=== PATIENT | female | born 1955 | race Caucasian/White ===

== ENCOUNTER → 2019-08-20 09:00 | Outpatient (BNVA) | payer MEDICARE, SELFPAY | PROVIDERS: Visit Provider Nurse Practitioner Family | DX: I10 Essential (primary) hypertension (principal); R53.83 Other fatigue; Z79.899 Other long term (current) drug therapy; E78.2 Mixed hyperlipidemia; D64.9 Anemia, unspecified; R25.2 Cramp and spasm; E55.9 Vitamin D deficiency, unspecified | CPT/HCPCS: 80053; 80061; 81001; 82306; 83036; 83550; 83735; 84443; 85025 ==

== ENCOUNTER → 2020-05-18 13:59 | Outpatient (BNVA) | payer MEDICARE, SELFPAY | PROVIDERS: Visit Provider Nurse Practitioner Family | DX: I10 Essential (primary) hypertension (principal); R73.09 Other abnormal glucose; E78.5 Hyperlipidemia, unspecified | CPT/HCPCS: 80053; 80061; 81003; 83036; 85025 ==

== ENCOUNTER 2020-06-28 10:52 | Outpatient (CLI) | payer MEDICARE, SELFPAY | END 2020-06-28 10:53 | disposition home or self-care (01) | LOC: LAB 04-25 11:14 | PROVIDERS: PCP Nurse Practitioner Family; Visit Provider Nurse Practitioner Family | DX: I10 Essential (primary) hypertension (principal) | CPT/HCPCS: 80053; 82306; 83735; 84439; 84443; 84481 ==

== ENCOUNTER → 2021-10-18 09:16 | Outpatient (BNVA) | payer MEDICARE, SELFPAY | PROVIDERS: PCP Nurse Practitioner Family; Visit Provider Nurse Practitioner | DX: E78.5 Hyperlipidemia, unspecified (principal); R73.09 Other abnormal glucose; I10 Essential (primary) hypertension | CPT/HCPCS: 80053; 80061; 83036; 84443; 85025 ==

== ENCOUNTER → 2021-12-21 09:47 | Outpatient (BNVA) | payer MEDICARE, SELFPAY | PROVIDERS: PCP Nurse Practitioner; Visit Provider Nurse Practitioner | DX: N39.0 Urinary tract infection, site not specified (principal) | CPT/HCPCS: 81000 ==

== ENCOUNTER → 2022-08-08 10:45 | Outpatient (BNVA) | payer MEDICARE, SELFPAY | PROVIDERS: PCP Nurse Practitioner; Visit Provider Nurse Practitioner | DX: I10 Essential (primary) hypertension (principal); E55.9 Vitamin D deficiency, unspecified; E78.2 Mixed hyperlipidemia; R35.0 Frequency of micturition; N39.0 Urinary tract infection, site not specified; M79.7 Fibromyalgia; F32.9 Major depressive disorder, single episode, unspecified | CPT/HCPCS: 80053; 81000; 82306; 85025 ==

== ENCOUNTER → 2022-08-28 08:59 | Outpatient (BNVA) | payer MEDICARE, SELFPAY | PROVIDERS: PCP Nurse Practitioner; Visit Provider Nurse Practitioner | DX: M19.011 Primary osteoarthritis, right shoulder (principal) | CPT/HCPCS: 73030 ==

== ENCOUNTER → 2022-09-22 10:14 | Outpatient (BNVA) | payer MEDICARE, SELFPAY | PROVIDERS: Visit Provider Nurse Practitioner | DX: K28.4 Chronic or unspecified gastrojejunal ulcer with hemorrhage (principal) | CPT/HCPCS: 85025 ==

== ENCOUNTER → 2022-12-05 08:55 | Outpatient (BNVA) | payer MEDICARE, SELFPAY | PROVIDERS: Visit Provider Nurse Practitioner | DX: R19.7 Diarrhea, unspecified (principal) | CPT/HCPCS: 87493 ==

== ENCOUNTER → 2023-04-10 10:47 | Outpatient (BNVA) | payer MEDICARE, SELFPAY | PROVIDERS: PCP Nurse Practitioner Family; Visit Provider Nurse Practitioner Family | DX: M54.31 Sciatica, right side (principal); M25.50 Pain in unspecified joint; M54.16 Radiculopathy, lumbar region; I10 Essential (primary) hypertension; E78.5 Hyperlipidemia, unspecified; R73.09 Other abnormal glucose; R52 Pain, unspecified; E88.810 Metabolic syndrome; Z79.899 Other long term (current) drug therapy | CPT/HCPCS: 80053; 81003; 83036; 84443; 85025 ==

== ENCOUNTER → 2023-07-13 16:29 | Outpatient (BNVA) | payer MEDICARE, SELFPAY | PROVIDERS: PCP Nurse Practitioner Family; Visit Provider Nurse Practitioner Family | DX: N39.0 Urinary tract infection, site not specified (principal) | CPT/HCPCS: 81000 ==

== ENCOUNTER → 2023-07-23 09:58 | Outpatient (BNVA) | payer MEDICARE, SELFPAY | PROVIDERS: PCP Nurse Practitioner Family; Visit Provider Nurse Practitioner Family | DX: R41.3 Other amnesia (principal); N39.0 Urinary tract infection, site not specified | CPT/HCPCS: 81003; 82607; 82746 ==

== ENCOUNTER 2023-08-23 08:16 | Outpatient (CLI) | payer MEDICARE, SELFPAY ==
--- NOTE | 2023-08-23 08:45 | MR_ITS ---
WS: [id number] MRI HEAD WITH CONTRAST TECHNIQUE: Sagittal T1, T2 axial, T2 axial FLAIR, axial susceptibility weighted imaging, axial diffus ion weighted images, and coronal T2 images were obtained. Pre and post-T1 axial and post T1 coronal i mages. ADC and FSPGR images. CLINICAL INFORMATION: R41.3 - Other amnesia COMPARISON: None. FINDINGS: No evidence of restricted diffusion to suggest acute ischemia. Ventricular system and basal cisterns are patent. Mild small vessel changes. Moderate parenchymal volume loss. Normal posterior fossa. Norm al vascular flow voids at the skull base. No extra-axial fluid collections. No evidence of mass or ma ss effect. 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 Paranasal sinuses are well aera chan. Mild mucosal thickening LEFT sphenoid sinus. No abnormal intracranial enhancement. Normal dural veno us sinuses. Normal posterior nasopharynx. Mastoid air cells are well aerated. No hemosiderin on the susceptibly weighted images. Normal optic chiasm and pituitary infundibulum. Mild symmetric atrophy temporal lobes and hippocampal formations. MR/MR head wo/w con [id number] IMPRESSION: 1. No evidence of restricted diffusion to suggest acute ischemia. 2. Mild small vessel changes. Moderate parenchymal volume loss. 3. Small chronic infarct RIGHT cerebellar hemisphere laterally. 4. No hemosiderin on susceptibility-weighted images. 5. No abnormal intracranial enhancement. 6. Mild symmetric atrophy temporal lobes and hippocampal formations.
[2023-08-23] MEDS: gadobenate dimeglumine 20 mL vial IV (09:20)
== END 2023-08-23 08:17 | disposition home or self-care (01) ==
LOC: RAD 08:17
PROVIDERS: PCP Nurse Practitioner Family; Visit Provider Nurse Practitioner Family
DX: R41.3 Other amnesia (principal); R41.0 Disorientation, unspecified; G31.89 Other specified degenerative diseases of nervous system
CPT/HCPCS: 70553; A9577

== ENCOUNTER → 2023-10-29 09:04 | Outpatient (BNVA) | payer MEDICARE, SELFPAY | PROVIDERS: PCP Nurse Practitioner Family; Visit Provider Nurse Practitioner Family | DX: N39.0 Urinary tract infection, site not specified (principal) | CPT/HCPCS: 81003 ==

== ENCOUNTER 2024-02-21 11:19 | Inpatient (IN) | payer MEDICARE, SELFPAY ==
[2024-02-21] VITALS (33 sets, daily range): BP systolic 67–145; BP diastolic 42–86; PULSE 38–79; RESP 13–27; TEMP 36.3–36.7; O2SAT 92–100; BMI 36.9; BMI 36.6
--- NOTE | 2024-02-21 11:23 | XR_ITS ---
WS: [id number] Portable AP upright chest, 02/21/2024 Clinical Data: bradycardia Comparison: None. Findings: No nodules, masses or effusions are seen. The heart is normal. Bilateral patchy opacities a re present which probably represent atelectasis but pneumonia is possible. There is a recession of di ctation paddle over the left chest and monitor leads over the chest wall. The pulmonary vascularity i s not increased. No pneumonia or pneumothorax is seen. There is an anterior cervical disc fusion. XR/XR chest 1V portable [id number] Impression: Bilateral patchy opacities over the diaphragms which may represent atelectasis and/or minimal pneumonia.
--- NOTE | 2024-02-21 11:23 | ECG_ITS ---
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 Measurements Intervals [place] Rate: 47 P: 0 SC: 0 QRS: 33 QRSD: 77 T: 31 QT: 439 QTc: 389 Interpretive Statements ATRIAL FIBRILLATION WITH SLOW VENTRICULAR RESPONSE LOW QRS VOLTAGE IN PRECORDIAL LEADS [QRS DEFLECTION < 1.0 mV IN CHEST LEADS] ABNORMAL RHYTHM ECG No previous ECG available for comparison Electronically Signed On 02-21-2024 12:07:24 CDT by Bessy Hurtado M.D. [id number]
--- NOTE | 2024-02-21 11:37 | W.ED.SOB ---
HPI - SOB/Dyspnea General: Chief Complaint: Shortness of Breath/Dyspnea Stated Complaint: BRADYCARDIA Time Seen by Provider: 02/21/24 11:21 History of Present Illness: HPI Narrative: Patient arrives from the clinic with complaints of low heart rate, shortness of breath, weakness, dizziness x 1 week. Patient said her heart rate was in the 40s and blood pressure was 80s over 60s. Patient does have A-fib. Patient is on flecainide 100 mg twice a day, lisinopril 40 mg twice a day, metoprolol 50 mg twice a day, she sees a manager administrative in [place] to put her on flecainide for A-fib. EMS did give her 2 mg of atropine on route and 800 mL of fluid. Upon arrival blood pressure 99/55 with a heart rate of 57, show EKG does show A-fib with a slow ventricular response. Related Data Home Medications Medication Instructions Recorded Confirmed ferrous sulfate 325 mg (65 mg 325 mg PO DAILY 09/22/22 02/21/24 iron) tablet (FeroSul) pantoprazole 40 mg tablet,delayed 40 mg PO DAILY 09/22/22 02/21/24 release albuterol sulfate 90 mcg/actuation 2 puff inhalation Q6H PRN 01/31/23 02/21/24 aerosol inhaler Shortness Of Breath metoprolol tartrate 50 mg tablet 50 mg PO BID 01/31/23 02/21/24 cyclobenzaprine 10 mg tablet 10 mg PO TID PRN muscle spasms 02/21/24 02/21/24 lidocaine 5 % topical patch 1 patch topical Q24H PRN Pain 02/21/24 02/21/24 venlafaxine 150 mg 150 mg PO DAILY 02/21/24 02/21/24 capsule,extended release 24 hr Previous Rx's Medication Instructions Recorded cyanocobalamin (vitamin B-12) 1,000 mcg SUBCUT .monthly 3 months 07/26/23 1,000 mcg/mL injection solution #3 mL tramadol 50 mg tablet 50 mg PO Q6H PRN pain #120 tabs 11/19/23 celecoxib 200 mg capsule 200 mg PO BID #180 caps 01/14/24 lisinopril 40 mg tablet 40 mg PO BID #180 tabs 01/14/24 gabapentin 600 mg tablet 600 mg PO TID #270 tabs 01/23/24 flecainide 100 mg tablet 100 mg PO Q12H 30 days #60 tabs 02/01/24 Allergies Allergy/AdvReac Type Severity Reaction Status Date / Time Penicillins Allergy Severe sick Verified 01/31/24 14:06 Sulfa (Sulfonamide Allergy Severe sick Verified 01/31/24 14:06 Antibiotics) Review of Systems General: Reports: 10 or more systems reviewed and unremarkable except in HPI and below PFSH ED PFSH: Medical History (Updated 02/21/24 @ 13:40 by Mitch Lux DO) Atrial paroxysmal tachycardia Cervical radiculopathy, chronic Osteoarthritis of right shoulder Confusion Memory loss Acute UTI Metabolic syndrome Sciatica of right side Joint pain Palpable mass of lower back Diarrhea Vitamin D deficiency Elevated alkaline phosphatase level Hyperlipidemia Fibromyalgia Depression, controlled Essential hypertension Peripheral neuropathy History of colon cancer Stage II, patient has family history of colon cancer. Followed by Dr. Thornton [employer] [place] History of back pain Surgical History S/P cervical spinal fusion S/P hysterectomy with oophorectomy [address] Santana, Pradip Tariq [place] History of colon resection History of knee replacement, total History of cholecystectomy Social History Smoking and tobacco/nicotine status: tobacco/nicotine user, details unknown Second hand smoke exposure: No Alcohol intake: never Physical Exam Const: COMMON NORMALS: no acute distress, average body habitus, patient oriented x3, no limitations, healthy appearing, alert and well nourished HENMT: COMMON NORMALS: normocephalic, atraumatic, hearing grossly normal bilaterally, external ears normal, Normal external nose present and moist oral mucous membranes HEAD & SCALP: normocephalic and atraumatic NOSE: Normal external nose present EXTERNAL EAR: Yes external ears normal Neck/C-Spine: COMMON NORMALS: no JVD Chest: COMMONS NORMALS: normal inspection of the chest and normal palpation of entire chest wall Resp: COMMON NORMALS: normal respiratory effort, No retractions, No use of accessory muscles and clear to auscultation bilaterally AUSCULTATION: clear to auscultation bilaterally Cardio: COMMON NORMALS: no JVD, regular rate, regular rhythm, S1 normal heart sound present, S2 normal heart sound present, No gallops present (Cardio), No clicks present (Cardio), No murmurs present (Cardio) and No rub (Cardio) RATE: regular rate RHYTHM: regular rhythm HEART SOUNDS: S1 normal heart sound present and S2 normal heart sound present GI: COMMON NORMALS: Normal to inspection, nondistended, normoactive bowel sounds present, Soft to palpation, non-tender, No hepatosplenomegaly present and no masses PALPATION: Yes Soft to palpation and Yes No hepatosplenomegaly present Neuro: COMMON NORMALS: patient oriented x3 SENSORIUM/ORIENTATION: Yes alert Course Vital Signs: Vital signs: Vital Signs Temperature 98.1 F 02/21/24 11:21 Pulse Rate 44 L 02/21/24 13:19 Respiratory Rate 14 02/21/24 13:19 Blood Pressure 116/52 02/21/24 13:02 Pulse Oximetry 93 02/21/24 13:19 Oxygen Delivery Me thod Room Air 02/21/24 13:19 MDM - SOB/Dyspnea Medical Decision Making Lab work was obtained which essentially unremarkable other than a potassium of 6.0, chest x-ray showed bilateral patchy opacities atelectasis versus minimal pneumonia, however lactic acid and procalcitonin were normal as well as white count, BNP slightly elevated to 2000, no pulmonary edema on the x-ray, patient was given 10 mg albuterol breathing treatment, 1 mg of calcium gluconate, 10 units of insulin, 250 mL of D10. This increased her heart rate up to the mid 40s to the low 50s and blood pressure to 120/49, Dr. Shore was consulted who agreed to place patient in ICU, Dr. Hurtado was consulted who agreed to see the patient in the ER. Medical Records I reviewed the patient's medical records. Lab Data I reviewed the patient's lab results. 02/21/24 11:30 02/21/24 11:30 Labs/Radiology: Radiology Impressions Chest X-Ray 02/21/24 11:23 Impression: Bilateral patchy opacities over the diaphragms which may represent atelectasis and/or minimal pneumonia. Laboratory Results WBC 8.05 10^3/uL (3.29-11.43) 02/21/24 11:30 RBC 4.19 10^6/uL (3.85-5.65) 02/21/24 11:30 Hgb 12.30 g/dL (11.27-16.99) 02/21/24 11: Hct 40.2 % (36-47) 02/21/24 11: MCV 95.9 fl (85-98) 02/21/24 11:30 MCH 29.4 pg (27-33) 02/21/24 11: MCHC 30.6 g/dL (30-55) 02/21/24 11:30 RDW 13.5 % (12.1-15.1) 02/21/24 11:30 Plt Count 156 10^3/cmm (157-399) L 02/21/24 11:30 MPV 9.8 fL (7.4-10.4) 02/21/24 11: Neut % (Auto) 63.1 % 02/21/24 11:30 Lymph % (Auto) 24.6 % 02/21/24 11:30 [place] % (Auto) 8.0 % 02/21/24 11:30 Eos % (Auto) 3.2 % 02/21/24 11:30 Baso % (Auto) 0.6 % 02/21/24 11:30 Neut # (Auto) 5.08 10^3/uL (1.8-7.7) 02/21/24 11:30 Lymph # (Auto) 2.0 10^3/uL (0.8-4.8) 02/21/24 11:30 [place] # (Auto) 0.6 10^3/uL (0.2-0.9) 02/21/24 11:30 Eos # (Auto) 0.3 10^3/uL (0.0-0.8) 02/21/24 11:30 Baso # (Auto) 0.1 10^3/uL (0.0-0.1) 02/21/24 11: Nucleated RBC % (auto) 0 % 02/21/24 11: Nucleated RBCs # 0.0 /100WBC 02/21/24 11:30 Sodium 135 mmol/L (136-145) L 02/21/24 11:30 Potassium 6.0 mmol/L (3.5-5.1) H 02/21/24 11:30 Chloride 103 mmol/L (98-107) 02/21/24 11:30 Carbon Dioxide 27 mmol/L (22-29) 02/21/24 11:30 Anion Gap 11.0 (5-19) 02/21/24 11:30 BUN 20 mg/dL (8-23) 02/21/24 11:30 Creatinine 0.8 mg/dL (0.5-0.9) 02/21/24 11:30 GFR Calculation 71.3 mL/min (90-130) L 02/21/24 11:30 Glucose 84 mg/dL (65-115) 02/21/24 11:30 POC Glucose 150 mg/dL (70-110) H 02/21/24 13:24 Calculated Osmolality 282 mOsm/kg (285-295) L 02/21/24 11:30 Lactic Acid 1.2 mmol/L (0.5-2.2) 02/21/24 11:30 Calcium 8.5 mg/dL (8.5-10.5) 02/21/24 11:30 Magnesium 1.9 mg/dL (1.7-2.3) 02/21/24 11:30 Total Bilirubin 0.3 mg/dL (0.15-1.2) 02/21/24 11:30 AST 18 U/L (0-32) 02/21/24 11:30 ALT 14 U/L (0-33) 02/21/24 11:30 Alkaline Phosphatase 79 U/L (35-105) 02/21/24 11:30 Troponin T Baseline 12 ng/L (0-10) H 02/21/24 11:30 NT-Pro-B Natriuret Pep 2081 pg/mL (0-125) H 02/21/24 11:30 Total Protein 5.7 g/dL (6.6-8.7) L 02/21/24 11:30 Albumin 3.8 g/dL (3.5-5.2) 02/21/24 11:30 Globulin 1.9 g/dL (1.3-4.6) 02/21/24 11:30 Procalcitonin 0.08 ng/mL (0-0.5) 02/21/24 11:30 TSH 2.19 uIU/mL (0.27-4.20) 02/21/24 11:30 All radiology interpretation(s) finalized by discharge Discharge Plan Discharge Patient Disposition: Admitted As Inpatient Clinical Impression: Symptomatic bradycardia, Acute hypotension, Acute hyperkalemia, Atrial fibrillation Condition: Stable Coding Level of Care Code ED Operator Control Room for Hayley aGrcia
--- NOTE | 2024-02-21 11:41 | PC.NURSE ---
pacer/defib pads placed on pt
[2024-02-21 11:44] LABS: Basophils # 0.1 10^3/uL (0.0-0.1); Basophils % 0.6 %; Eosinophils # 0.3 10^3/uL (0.0-0.8); Eosinophils % 3.2 %; Hematocrit 40.2 % (36-47); Lymphocytes % 24.6 %; Mean Corpuscular HGB Conc 30.6 g/dL (30-55); Mean Corpuscular Hemoglobin 29.4 pg (27-33); Mean Corpuscular Volume 95.9 fl (85-98); Mean Platelet Volume 9.8 fL (7.4-10.4); Monocytes # 0.6 10^3/uL (0.2-0.9); Neutrophils # 5.08 10^3/uL (1.8-7.7); Neutrophils % 63.1 %; Nucleated Red Blood Cells % 0 %; Platelet Count 156 10^3/cmm (157-399); Red Blood Count 4.19 10^6/uL (3.85-5.65); Red Cell Distribution Width 13.5 % (12.1-15.1); White Blood Count 8.05 10^3/uL (3.29-11.43)
[2024-02-21 11:59] LABS: Troponin(5th) Baseline 12 ng/L (0-10)
[2024-02-21 12:06] LABS: Alanine Aminotransferase 14 U/L (0-33); Albumin Level 3.8 g/dL (3.5-5.2); Alkaline Phosphatase 79 U/L (35-105); Aspartate Amino Transferase 18 U/L (0-32); Blood Urea Nitrogen 20 mg/dL (8-23); Calcium 8.5 mg/dL (8.5-10.5); Carbon Dioxide 27 mmol/L (22-29); Chloride 103 mmol/L (98-107); Creatinine Clr Calc Pharmacy 65.4411; Globulin 1.9 g/dL (1.3-4.6); Glomerular Filtration Rate 71.3 mL/min (90-130); Glucose 84 mg/dL (65-115); Magnesium 1.9 mg/dL (1.7-2.3); Osmolality Calculated 282 mOsm/kg (285-295); Sodium 135 mmol/L (136-145); Thyroid Stimulating Hormone 2.19 uIU/mL (0.27-4.20); Total Bilirubin 0.3 mg/dL (0.15-1.2); Total Protein 5.7 g/dL (6.6-8.7)
[2024-02-21] MEDS: calcium chloride 10% Syr 10 mL 1 GM IVP (12:40)
[2024-02-21] MEDS: dextrose 10% 250 ML 1000 ML IV ×2 (12:40→13:37)
--- NOTE | 2024-02-21 12:40 | PC.NURSE ---
glucose 84, delayed insulin admin until dextrose infused.
--- NOTE | 2024-02-21 12:46 | PC.PHAR ---
Pt is not [facility]-pt uses [facility], which happens to be the same pharmacy [place] uses.
[2024-02-21 12:52] LABS: NT Pro B Type Natriuretic Pept 2081 pg/mL (0-125)
[2024-02-21 13:09] LABS: Lactic Sepsis W/Reflex 1.2 mmol/L (0.5-2.2)
[2024-02-21] MEDS: albuterol 2.5 mg/3 mL Neb 10 MG INHALATION (13:13)
[2024-02-21 13:17] LABS: Procalcitonin 0.08 ng/mL (0-0.5)
--- NOTE | 2024-02-21 13:23 | ECG_ITS ---
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 Measurements Intervals [place] Rate: 47 P: 44 NV: 190 QRS: 29 QRSD: 92 T: 13 QT: 414 QTc: 369 Interpretive Statements SINUS BRADYCARDIA LOW QRS VOLTAGE IN PRECORDIAL LEADS [QRS DEFLECTION < 1.0 mV IN CHEST LEADS] Compared to ECG 02/21/2024 11:25:17 Atrial fibrillation no longer present Electronically Signed On 02-21-2024 17:19:25 CDT by Bessy Hurtado M.D. [id number]
[2024-02-21 13:27] LABS: Glucose Point of Care 150 mg/dL (70-110)
[2024-02-21] MEDS: insulin regular-human 100 units/1 mL 10 UNIT IVP (13:36)
--- NOTE | 2024-02-21 13:37 | PC.NURSE ---
glucose via FS: 150
[2024-02-21 14:52] LABS: Troponin 5 2HR 8.72 ng/L (0-10)
[2024-02-21 14:54] LABS: Troponin 5 2HR Delta -3.28 ABS# (0-10)
--- NOTE | 2024-02-21 15:06 | PM.CONSULT ---
Providers/Reason For Consult Consulting Physician/Specialty*: Cardiology/Dr. Hurtado Reason for Consult*: Symptomatic slow heart rate/hypotension Requesting Physician: Dr. Mitch Lux Attending Physician: Avelino Cabrera DO Primary Care Provider: Dion Jorge History of Present Illness History of Present Illness Shauna Sam is a 69 year old female with a previous history of atrial fibrillation and hypertension on multiple medication presented to the ER with a couple of days history of weakness that, dizziness and overall tiredness. On arrival to the ER heart rate was in the 40s with atrial fibrillation. Systolic blood pressure in the 80s to 90s. Patient was resuscitated with IV fluids. Initial lab data showed hyperkalemia, potassium 6.2, with normal renal function. She was treated for hyperkalemia appropriately and currently now she is in sinus rhythm with heart rate between 60s to 70s. She feels much better. No signs symptom suggestive of angina or heart failure. I reviewed her detail history. [facility] for which she was manage appropriately. At that time she was found to be in atrial fibrillation with rapid ventricular rate and is subsequently was started on flecainide and metoprolol. She has also been taking lisinopril 40 mg twice a day for blood pressure control. Additionally she takes Celebrex for osteoarthritis. She has hardly seen a doctor for follow-up as she has been doing quite well to recent for last few days. Review of Systems Narrative: Detailed 10 point systemic review unremarkable except for as mentioned above in the history of present illness. Medications/Allergies Home Medications Medication Instructions Recorded Confirmed Last Taken Type ferrous sulfate 325 mg (65 mg 325 mg PO DAILY 09/22/22 02/21/24 02/21/24 History iron) tablet (FeroSul) pantoprazole 40 mg tablet,delayed 40 mg PO DAILY 09/22/22 02/21/24 02/21/24 History release albuterol sulfate 90 mcg/actuation 2 puff inhalation Q6H PRN 01/31/23 02/21/24 Unknown History aerosol inhaler Shortness Of Breath metoprolol tartrate 50 mg tablet 50 mg PO BID 01/31/23 02/21/24 02/21/24 History cyanocobalamin (vitamin B-12) 1,000 mcg SUBCUT .monthly 3 months 07/26/23 02/21/24 Unknown Rx 1,000 mcg/mL injection solution #3 mL tramadol 50 mg tablet 50 mg PO Q6H PRN pain #120 tabs 11/19/23 02/21/24 Unknown Rx celecoxib 200 mg capsule 200 mg PO BID #180 caps 01/14/24 02/21/24 02/21/24 Rx lisinopril 40 mg tablet 40 mg PO BID #180 tabs 01/14/24 02/21/24 02/21/24 Rx gabapentin 600 mg tablet 600 mg PO TID #270 tabs 01/23/24 02/21/24 02/21/24 Rx flecainide 100 mg tablet 100 mg PO Q12H 30 days #60 tabs 02/01/24 02/21/24 02/21/24 Rx cyclobenzaprine 10 mg tablet 10 mg PO TID PRN muscle spasms 02/21/24 02/21/24 Unknown History lidocaine 5 % topical patch 1 patch topical Q24H PRN Pain 02/21/24 02/21/24 Unknown History venlafaxine 150 mg 150 mg PO DAILY 02/21/24 02/21/24 02/21/24 History capsule,extended release 24 hr Allergies Allergy/AdvReac Type Severity Reaction Status Date / Time Penicillins Allergy Severe sick Verified 01/31/24 14:06 Sulfa (Sulfonamide Allergy Severe sick Verified 01/31/24 14:06 Antibiotics) PFSH Acute PFSH: Medical History Atrial paroxysmal tachycardia Cervical radiculopathy, chronic Osteoarthritis of right shoulder Confusion Memory loss Acute UTI Metabolic syndrome Sciatica of right side Joint pain Palpable mass of lower back Diarrhea Vitamin D deficiency Elevated alkaline phosphatase level Hyperlipidemia Fibromyalgia Depression, controlled Essential hypertension Peripheral neuropathy History of colon cancer Stage II, patient has family history of colon cancer. Followed by Clarisa Zuniga [place] History of back pain Surgical History S/P cervical spinal fusion S/P hysterectomy with oophorectomy 2004 approximately Pradip Ulrich [place] History of colon resection History of knee replacement, total History of cholecystectomy Social History Smoking and tobacco/nicotine status: tobacco/nicotine user, details unknown Second hand smoke exposure: No Alcohol intake: never Vitals/I&O/Wt Last Vital Signs Temp 98.1 F 02/21/24 11:21 Pulse 58 L 02/21/24 13:58 Resp 14 02/21/24 13:19 BP 116/52 02/21/24 13:02 Pulse Ox 93 02/21/24 13:19 O2 Del Method Room Air 02/21/24 13:19 02/21/24 02/21/24 02/21/24 06:59 14:59 22:59 Intake Total 500 / 500 Balance 500 / 500 Weight last 48 hrs Weight 189 lb Physical Exam Narrative: Patient laying comfortably on the bed in ER. She is not in any respiratory distress. Her vitals are now much better after resuscitation. Const: COMMON NORMALS: no acute distress, patient oriented x3, alert and well nourished HENMT: OTHER: Normal. Eye: OTHER: Normal Resp: OTHER: Good air entry bilaterally. No added sounds. Cardio: OTHER: Normal first and second heart sounds. Regular rhythm currently. No added sounds. GI: OTHER: Soft nontender bowel sounds audible. Extremity: OTHER: Both lower extremities unremarkable. No pedal edema. Distal pulses palpable. Neuro: COMMON NORMALS: patient oriented x3 SENSORIUM/ORIENTATION: Yes alert OTHER: Grossly intact. She moves all 4 limbs. Skin: OTHER: Warm and dry. Data 02/21/24 11:30 02/21/24 11:30 A&P Assessment and plan (1) Atrial fibrillation: 69-year-old female patient known for atrial fibrillation for almost 2 years and hypertension, presented now with symptomatic A-fib with a slow heart rate( 30s to 40s heart rate). Her blood pressure was also significantly low in the 80s systolic. Slow A-fib and hypotension are as result of medication and high doses, along with hyperkalemia which is very likely due to high dose of lisinopril (40 mg twice a day). Clinically no angina or any heart failure symptoms. She is now converted to normal sinus rhythm with a heart rate into the 70s. Recommendation: 1. Reduce the dose of metoprolol to half of her current dose from 50 mg twice a day to 25 mg twice a day. 2. Reduce the dose of flecainide to 100 mg once a day. 3. Reduce the dose of lisinopril 40 mg to once a day from twice a day. 4. In case her blood pressure remains high, amlodipine can be added. I strongly recommend her to have a follow-up with a construction supervisor in few weeks following her discharge. Qualifiers: Atrial fibrillation type: unspecified Qualified Code(s): I48.91 - Unspecified atrial fibrillation (2) Acute hyperkalemia: (3) Acute hypotension: Coding Level of Care Code 84458 Diagnoses Atrial fibrillation I48.91 Atrial fibrillation type: unspecified Acute hyperkalemia E87.5 Acute hypotension I95.9 Time Spent (min) 30
[2024-02-21 15:09] LABS: Glucose Point of Care 86 mg/dL (70-110)
--- NOTE | 2024-02-21 15:22 | PC.NURSE ---
glucose via FS @[id number]: 84
--- NOTE | 2024-02-21 15:24 | PC.NURSE ---
glucose via FS: 86
--- NOTE | 2024-02-21 16:02 | P.HP_ITS ---
Providers/Chief Complaint 2 Admitting Physician: Avelino Cabrera DO Primary Care Provider: Dion Jorge Chief Complaint: BRADYCARDIA History of Present Illness Shauna Sam is a 69 year old female presents with 1-1/2 weeks of lightheadedness dizziness shortness of breath and weakness. Patient reports that approximately a year and a half ago she had a GI bleed and found to have atrial fibrillation. Boiler Testing Technician at that time placed her on flecainide. She has not followed up. In the emergency room she is found to have slow A-fib with a heart rate 30s to 40s. With atropine given in the field the patient's heart rate was up to approximately 50. Also it was noted that her potassium was 6.0 with her home medication of lisinopril 40 mg twice daily. This was emergently corrected with D10 insulin albuterol and calcium gluconate. Currently her heart rate is in the 70s and normal sinus rhythm. Her blood pressure is stable within normal limits. She is still feeling slightly dizzy she got up to go to the bathroom in the ICU. She currently denies chest pain shortness of breath or nausea Has been reports she really has not been feeling well in this past year and a half since the GI bleed and atrial fibrillation diagnosis. Reports of confusion in the past few months as well. Review of Systems 2 Const: Denies: fever(s) or chills Eyes: Denies: change in vision ENMT: Denies: throat pain or nasal congestion Card: Denies: chest pain or palpitations Resp: Reports: dyspnea; Denies: productive cough GI: Denies: abdominal pain, nausea, vomiting or change in stool character : Denies: dysuria Musc: Reports: muscle weakness; Denies: back pain or extremity pain Skin/Breast: Denies: rash or lesions Neuro: Reports: dizziness and confusion; Denies: headache(s) Psych: Denies: anxiety or depression Danish/Lymph: Denies: easy bruising or easy bleeding Medications/Allergies Home Medications Medication Instructions Recorded Confirmed Last Taken Type ferrous sulfate 325 mg (65 mg 325 mg PO DAILY 09/22/22 02/21/24 02/21/24 History iron) tablet (FeroSul) pantoprazole 40 mg tablet,delayed 40 mg PO DAILY 09/22/22 02/21/24 02/21/24 History release albuterol sulfate 90 mcg/actuation 2 puff inhalation Q6H PRN 01/31/23 02/21/24 Unknown History aerosol inhaler Shortness Of Breath metoprolol tartrate 50 mg tablet 50 mg PO BID 01/31/23 02/21/24 02/21/24 History cyanocobalamin (vitamin B-12) 1,000 mcg SUBCUT .monthly 3 months 07/26/23 02/21/24 Unknown Rx 1,000 mcg/mL injection solution #3 mL tramadol 50 mg tablet 50 mg PO Q6H PRN pain #120 tabs 11/19/23 02/21/24 Unknown Rx celecoxib 200 mg capsule 200 mg PO BID #180 caps 01/14/24 02/21/24 02/21/24 Rx lisinopril 40 mg tablet 40 mg PO BID #180 tabs 01/14/24 02/21/24 02/21/24 Rx gabapentin 600 mg tablet 600 mg PO TID #270 tabs 01/23/24 02/21/24 02/21/24 Rx flecainide 100 mg tablet 100 mg PO Q12H 30 days #60 tabs 02/01/24 02/21/24 02/21/24 Rx cyclobenzaprine 10 mg tablet 10 mg PO TID PRN muscle spasms 02/21/24 02/21/24 Unknown History lidocaine 5 % topical patch 1 patch topical Q24H PRN Pain 02/21/24 02/21/24 Unknown History venlafaxine 150 mg 150 mg PO DAILY 02/21/24 02/21/24 02/21/24 History capsule,extended release 24 hr Allergies Allergy/AdvReac Type Severity Reaction Status Date / Time Penicillins Allergy Severe sick Verified 01/31/24 14:06 Sulfa (Sulfonamide Allergy Severe sick Verified 01/31/24 14:06 Antibiotics) PFSH Acute 2 PFSH: Medical History Atrial paroxysmal tachycardia Cervical radiculopathy, chronic Osteoarthritis of right shoulder Confusion Memory loss Acute UTI Metabolic syndrome Sciatica of right side Joint pain Palpable mass of lower back Diarrhea Vitamin D deficiency Elevated alkaline phosphatase level Hyperlipidemia Fibromyalgia Depression, controlled Essential hypertension Peripheral neuropathy History of colon cancer Stage II, patient has family history of colon cancer. Followed by Dr. Thornton [place], [place] History of back pain Surgical History S/P cervical spinal fusion S/P hysterectomy with oophorectomy [address] Santana, Pradip Tariq, JAYA History of colon resection History of knee replacement, total History of cholecystectomy Social History Smoking and tobacco/nicotine status: tobacco/nicotine user, details unknown Second hand smoke exposure: No Alcohol intake: never Vitals/I&O/Wt Last Vital Signs Temp 98.1 F 02/21/24 11:21 Pulse 61 02/21/24 15:23 Resp 14 02/21/24 13:19 BP 104/45 02/21/24 15:23 Pulse Ox 100 02/21/24 15:23 O2 Del Method Room Air 02/21/24 15:22 02/21/24 02/21/24 02/21/24 06:59 14:59 22:59 Intake Total 500 / 500 Balance 500 / 500 Weight last 48 hrs Weight 85 kg Weight 85.729 kg Physical Exam 2 Narrative: Alert and oriented x 3 no acute distress neurologic nonfocal exam HEENT head is normocephalic atraumatic he pupils equal round reactive to light and accommodation extraocular muscles are intact there is no scleral icterus mucous membranes are moist and pink without lesions or exudates neck is supple no JVD carotid bruits lymphadenopathy heart is regular normal S1-S2 there is a soft systolic murmur heard best in the upper sternal borders bilaterally no clicks gallops or rubs Lungs clear to auscultation without wheezes rales or rhonchi Abdomen soft obese nontender nondistended positive bowel sounds no hepatosplenomegaly Extremities no clubbing cyanosis or edema Skin no lesions or rashes noted Back no significant kyphosis or scoliosis noted no CVA tenderness Neuro mood and affect are appropriate for acute illness Data 02/21/24 11:30 02/21/24 11:30 A&P Assessment and plan (1) Symptomatic bradycardia: Discussed with cardiology patient is EKG showed slow A-fib. Now in normal sinus rhythm (2) Acute hyperkalemia: Treated acutely in ER. Will decrease dose of lisinopril and close follow-up (3) Atrial fibrillation: Discussed with cardiology patient will likely return back to flecainide at a lower dose. Qualifiers: Atrial fibrillation type: unspecified Qualified Code(s): I48.91 - Unspecified atrial fibrillation (4) Confusion: Most likely secondary to bradycardia and hypotension if this does not resolve after a few weeks recommend follow-up with PCP and possible neurologic testing (5) Essential hypertension: Will adjust meds according to blood pressure and heart rate Attestations 2 Medical Necessity Statement*: Patient with severe symptomatic bradycardia. Expected to stay 2 midnights to rule out further arrhythmias and also follow-up on hyper kalemia. Patient is at high risk for further arrhythmia and life-threatening condition Coding Level of Care Code Acute Code for [facility] Diagnoses Symptomatic bradycardia R00.1 Acute hyperkalemia E87.5 Atrial fibrillation I48.91 Atrial fibrillation type: unspecified Confusion R41.0 Essential hypertension I10
[2024-02-21] MEDS: CELEcoxib 200 mg Capsule PO (17:18)
[2024-02-21] MEDS: heparin 5,000 unit/mL INJ 1 mL 5000 UNIT SUBCUT (17:18)
--- NOTE | 2024-02-21 17:23 | ECG_ITS ---
Zzish Test Date: 2024-02-21 Pat Name: Shauna Sam Department: Room: [facility] Gender: Female Statement Distribution Clerk: : [id number] Requested By: Mitch Lux Order Number: [id number] Reading MD: Bessy Hurtado M.D. Measurements Intervals North Rate: 68 P: 18 [place]: 156 QRS: 9 QRSD: 90 T: 26 QT: 403 QTc: 429 Interpretive Statements SINUS RHYTHM LOW QRS VOLTAGE IN PRECORDIAL LEADS Compared to ECG 02/21/2024 13:17:38 Sinus bradycardia no longer present Electronically Signed On 02-21-2024 17:14:04 CDT by Bessy Hurtado M.D. [email or web address]
[2024-02-21 19:17] LABS: Troponin 5 6HR 11.92 ng/L (0-10)
[2024-02-21 19:20] LABS: Troponin 5 6HR Delta -0.08 ng/L (0-12)
[2024-02-21] MEDS: gabapentin 300 mg Capsule 600 MG PO (20:13)
[2024-02-22] VITALS (18 sets, daily range): BP systolic 96–158; BP diastolic 55–95; PULSE 67–86; RESP 12–24; TEMP 36.1–37.1; O2SAT 92–96
[2024-02-22] MEDS: heparin 5,000 unit/mL INJ 1 mL 5000 UNIT SUBCUT (04:43)
[2024-02-22] MEDS: TRAMadol 50 mg Tablet PO (04:48)
[2024-02-22 05:37] LABS: Anion Gap 13.5 (5-19); Blood Urea Nitrogen 16 mg/dL (8-23); Calcium 9.1 mg/dL (8.5-10.5); Carbon Dioxide 27 mmol/L (22-29); Chloride 107 mmol/L (98-107); Creatinine Clr Calc Pharmacy 65.1313; Glomerular Filtration Rate 83.2 mL/min (90-130); Glucose 86 mg/dL (65-115); Osmolality Calculated 294 mOsm/kg (285-295); Potassium 5.5 mmol/L (3.5-5.1); Sodium 142 mmol/L (136-145)
[2024-02-22 05:43] LABS: Estmated Average Glucose 134; Hemoglobin A1C 6.3 % (4.0-6.0)
[2024-02-22] MEDS: pantoprazole DR 40 mg Tablet PO (10:26)
[2024-02-22] MEDS: CELEcoxib 200 mg Capsule PO (10:27)
[2024-02-22] MEDS: ferrous sulfate EC 325 mg Tablet PO (10:27)
[2024-02-22] MEDS: venlafaxine ER (24HR) 150 mg Capsule PO (10:27)
[2024-02-22] MEDS: gabapentin 300 mg Capsule 600 MG PO ×2 (10:28→14:32)
[2024-02-22] MEDS: cyclobenzaprine 10 mg Tablet PO (10:35)
[2024-02-22] MEDS: sodium chloride 0.9% 500 ML 250 ML IV (11:24)
--- NOTE | 2024-02-22 14:11 | PC.SOCIAL ---
Per rounds patient to discharge today
--- NOTE | 2024-02-22 14:47 | PM.DCS ---
Discharge Providers Date of Admission: 02/21/24 14:16 Date of Discharge: February 22, 2024 Attending Provider at Admission: Avelino Cabrera DO Attending Provider at Discharge: Avelino Cabrera DO Primary Care Provider: Dion Jorge Diagnoses at Discharge Discharge Diagnosis (1) Symptomatic bradycardia: Status: Acute (2) Acute hyperkalemia: Status: Acute (3) Atrial fibrillation: Status: Acute Qualifiers: Atrial fibrillation type: unspecified Qualified Code(s): I48.91 - Unspecified atrial fibrillation (4) Confusion: Status: Acute (5) Essential hypertension: Status: Chronic Reason for Visit Reason for Visit: BRADYCARDIA Brief History: Shauna Sam is a 69 year old female presents with 1-1/2 weeks of lightheadedness dizziness shortness of breath and weakness. Patient reports that approximately a year and a half ago she had a GI bleed and found to have atrial fibrillation. Social Studies Department Chair at that time placed her on flecainide. She has not followed up. In the emergency room she is found to have slow A-fib with a heart rate 30s to 40s. With atropine given in the field the patient's heart rate was up to approximately 50. Also it was noted that her potassium was 6.0 with her home medication of lisinopril 40 mg twice daily. This was emergently corrected with D10 insulin albuterol and calcium gluconate. Currently her heart rate is in the 70s and normal sinus rhythm. Her blood pressure is stable within normal limits. She is still feeling slightly dizzy she got up to go to the bathroom in the ICU. She currently denies chest pain shortness of breath or nausea Has been reports she really has not been feeling well in this past year and a half since the GI bleed and atrial fibrillation diagnosis. Reports of confusion in the past few months as well. Hospital Course Hospital Course Patient was admitted to the ICU and pacer pads placed on patient. Her vital signs had stabilized by the time she was admitted to the ICU. Cardiology consult was obtained and it was decided patient was on too high of dosing of her cardiac medications. Flecainide, metoprolol and lisinopril were all on hold. The following day her blood pressure and heart rate were within normal limits. She was still somewhat dizzy getting up to go to the bathroom. Orthostatics were obtained and found to be abnormal. She was given a 500 cc fluid bolus and told to drink more fluids. Repeat orthostatics were negative. I am very hesitant to restart antihypertensives at this time. I still think she needs a little more washout. She is instructed to take her blood pressure daily and as needed with recurrent symptoms. She can resume flecainide at half the dose of 100 mg daily to prevent recurrent A-fib. However she is not to restart any further antihypertensives unless her blood pressure is consistently over systolic BP of 140 and then she is to reinitiate metoprolol at half dose 25 mg twice daily Patient will require close follow-up in these next few months with PCP and cardiology. Physical Exam Narrative: heart is regular normal S1-S2 there is a soft systolic murmur heard best in the upper sternal borders bilaterally no clicks gallops or rubs Lungs clear to auscultation without wheezes rales or rhonchi Abdomen soft obese nontender nondistended positive bowel sounds no hepatosplenomegaly Extremities no clubbing cyanosis or edema Discharge Data Studies Completed and Pending Completed Studies During Hospitalization Category Date Time Status XR chest 1V portable [id number] Stat Exams 02/21/24 11:23 Completed Radiology Impressions Chest X-Ray 02/21/24 11:23 Impression: Bilateral patchy opacities over the diaphragms which may represent atelectasis and/or minimal pneumonia. Laboratory Results WBC 8.05 10^3/uL (3.29-11.43) 02/21/24 11:30 RBC 4.19 10^6/uL (3.85-5.65) 02/21/24 11:30 Hgb 12.30 g/dL (11.27-16.99) 02/21/24 11:30 Hct 40.2 % (36-47) 02/21/24 11:30 MCV 95.9 fl (85-98) 02/21/24 11:30 MCH 29.4 pg (27-33) 02/21/24 11:30 MCHC 30.6 g/dL (30-55) 02/21/24 11:30 RDW 13.5 % (12.1-15.1) 02/21/24 11:30 Plt Count 156 10^3/cmm (157-399) L 02/21/24 11:30 MPV 9.8 fL (7.4-10.4) 02/21/24 11:30 Neut % (Auto) 63.1 % 02/21/24 11:30 Lymph % (Auto) 24.6 % 02/21/24 11:30 [place] % (Auto) 8.0 % 02/21/24 11:30 Eos % (Auto) 3.2 % 02/21/24 11:30 Baso % (Auto) 0.6 % 02/21/24 11:30 Neut # (Auto) 5.08 10^3/uL (1.8-7.7) 02/21/24 11:30 Lymph # (Auto) 2.0 10^3/uL (0.8-4.8) 02/21/24 11:30 [place] # (Auto) 0.6 10^3/uL (0.2-0.9) 02/21/24 11:30 Eos # (Auto) 0.3 10^3/uL (0.0-0.8) 02/21/24 11:30 Baso # (Auto) 0.1 10^3/uL (0.0-0.1) 02/21/24 11:30 Nucleated RBC % (auto) 0 % 02/21/24 11:30 Nucleated RBCs # 0.0 /100WBC 02/21/24 11:30 Sodium 142 mmol/L (136-145) 02/22/24 04:40 Potassium 5.5 mmol/L (3.5-5.1) H 02/22/24 04:40 Chloride 107 mmol/L (98-107) 02/22/24 04:40 Carbon Dioxide 27 mmol/L (22-29) 02/22/24 04:40 Anion Gap 13.5 (5-19) 02/22/24 04:40 BUN 16 mg/dL (8-23) 02/22/24 04:40 Creatinine 0.7 mg/dL (0.5-0.9) 02/22/24 04:40 GFR Calculation 83.2 mL/min (90-130) L 02/22/24 04:40 Glucose 86 mg/dL (65-115) 02/22/24 04:40 POC Glucose 86 mg/dL (70-110) 02/21/24 15:06 Estimat Average Glucose 134 02/22/24 04:40 Hemoglobin A1c 6.3 % (4.0-6.0) H 02/22/24 04:40 Calculated Osmolality 294 mOsm/kg (285-295) 02/22/24 04:40 Lactic Acid 1.2 mmol/L (0.5-2.2) 02/21/24 11:30 Calcium 9.1 mg/dL (8.5-10.5) 02/22/24 04:40 Magnesium 1.9 mg/dL (1.7-2.3) 02/21/24 11:30 Total Bilirubin 0.3 mg/dL (0.15-1.2) 02/21/24 11:30 AST 18 U/L (0-32) 02/21/24 11:30 ALT 14 U/L (0-33) 02/21/24 11:30 Alkaline Phosphatase 79 U/L (35-105) 02/21/24 11:30 Troponin T Baseline 12 ng/L (0-10) H 02/21/24 11:30 Troponin T 120 Minute 8.72 ng/L (0-10) 02/21/24 14:05 Delta Troponin T -3.28 ABS# (0-10) L 02/21/24 14:05 Troponin T Hi Sens 6Hr 11.92 ng/L (0-10) H 02/21/24 18:18 Troponin T Hi Sens 6Hr Delta -0.08 ng/L (0-12) L 02/21/24 18:18 NT-Pro-B Natriuret Pep 2081 pg/mL (0-125) H 02/21/24 11:30 Total Protein 5.7 g/dL (6.6-8.7) L 02/21/24 11:30 Albumin 3.8 g/dL (3.5-5.2) 02/21/24 11:30 Globulin 1.9 g/dL (1.3-4.6) 02/21/24 11:30 Procalcitonin 0.08 ng/mL (0-0.5) 02/21/24 11:30 TSH 2.19 uIU/mL (0.27-4.20) 02/21/24 11:30 Vitals Last Vital Signs Temp 98.7 F 02/22/24 12:00 Pulse 84 02/22/24 14:00 Resp 16 02/22/24 13:00 BP 107/65 11/01/24 14:00 Pulse Ox 94 02/22/24 10:00 O2 Del Method Room Air 02/22/24 08:42 Discharge Plan Discharge Patient Disposition: Home Condition: Stable Prescriptions: Continued pantoprazole 40 mg tablet,delayed release (DR/EC) 40 mg PO DAILY ferrous sulfate [FeroSul] 325 mg (65 mg iron) tablet 325 mg PO DAILY albuterol sulfate 90 mcg/actuation HFA aerosol inhaler 2 puff inhalation Q6H PRN (Reason: Shortness Of Breath) cyanocobalamin (vitamin B-12) 1,000 mcg/mL solution 1,000 mcg SUBCUT .monthly 90 Days Qty: 3 0RF Rx Instructions: recheck B12 4 weeks after last dose tramadol 50 mg tablet 50 mg PO Q6H PRN (Reason: pain) Qty: 120 3RF celecoxib 200 mg capsule 200 mg PO BID Qty: 180 2RF gabapentin 600 mg tablet 600 mg PO TID Qty: 270 3RF cyclobenzaprine 10 mg tablet 10 mg PO TID PRN (Reason: muscle spasms) venlafaxine 150 mg capsule,extended release 24hr 150 mg PO DAILY lidocaine 5 % adhesive patch,medicated 1 patch topical Q24H PRN (Reason: Pain) Rx Instructions: leave on most painful area for up to 12 hrs Changed flecainide 100 mg tablet 100 mg PO DAILY 30 Days Qty: 60 1RF Discontinued metoprolol tartrate 50 mg tablet 50 mg PO BID lisinopril 40 mg tablet 40 mg PO BID Qty: 180 2RF Discharge Orders: Discharge Order (Routine); Ordered 02/22/24 Ordered By: Avelino Cabrera Referrals: Dion Jorge, [employer] SALES REPRESENTATIVE [Primary Care Provider] - Discharge Diet: Cardiac and Low Salt Discharge Activity: Increase activity as tolerated Patient Instructions: Dizziness, A-fib (Atrial Fibrillation) (DC), Fall Prevention for Older Adults (DC), Hypotension (DC), Bradycardia (DC), Near Syncope (DC), Opioid Safety Activity Restrictions/Additional Instructions: monitor bp at home. take daily for now and as needed with symptoms of dizzyness/lightheadedness, etc. record and bring with you to PCP and cardiology. Stop lisinopril and metoprolol. if SBP consistently above 140 may restart metoprolol at 25 mg bid (cut pill in half). Stop taking if symptoms return. Please see primary care provider in 1 week cardiology in 2 weeks Discharge Attestations Time Spent in Discharge Care*: greater than 30 min Quality Metrics Clinical Quality Measures [ No reported AMI, CVA or VTE this stay] Coding Level of Care Code Acute Code for [facility] Diagnoses Symptomatic bradycardia R00.1 Acute hyperkalemia E87.5 Atrial fibrillation I48.91 Atrial fibrillation type: unspecified Confusion R41.0 Essential hypertension I10
== END 2024-02-22 15:52 | disposition home or self-care (01) | DRG 310 ==
LOC: ER 13:40 → ICU 14:17
PROVIDERS: Admitting Provider Internal Medicine; Emergency Provider Emergency Medicine; PCP Nurse Practitioner Family; Visit Provider Internal Medicine
DX: I48.91 Unspecified atrial fibrillation (principal); I10 Essential (primary) hypertension; E87.5 Hyperkalemia; M19.90 Unspecified osteoarthritis, unspecified site; Z96.659 Presence of unspecified artificial knee joint; E78.5 Hyperlipidemia, unspecified; M79.7 Fibromyalgia; F32.A Depression, unspecified; G62.9 Polyneuropathy, unspecified; I95.9 Hypotension, unspecified; R41.0 Disorientation, unspecified; R00.1 Bradycardia, unspecified; T46.2X5A Adverse effect of other antidysrhythmic drugs, initial encounter; T46.4X5A Adverse effect of angiotensin-converting-enzyme inhibitors, initial encounter; F17.200 Nicotine dependence, unspecified, uncomplicated; Z79.51 Long term (current) use of inhaled steroids; Z98.1 Arthrodesis status; Z88.0 Allergy status to penicillin; Z88.2 Allergy status to sulfonamides; Z90.710 Acquired absence of both cervix and uterus; Z90.722 Acquired absence of ovaries, bilateral; Z90.49 Acquired absence of other specified parts of digestive tract; Z87.440 Personal history of urinary (tract) infections; Z85.038 Personal history of other malignant neoplasm of large intestine; Z80.0 Family history of malignant neoplasm of digestive organs
CPT/HCPCS: 36415; 36416; 71045; 80048; 80053; 82962; 83036; 83605; 83735; 83880; 84145; 84443; 84484; 85025; 93005; 94640; 96372; J1644; J1815; J3490; J7040; J7613; J7799

== ENCOUNTER → 2024-02-26 10:22 | Outpatient (BNVA) | payer MEDICARE, SELFPAY | PROVIDERS: PCP Nurse Practitioner Family; Visit Provider Nurse Practitioner Family | DX: R73.09 Other abnormal glucose (principal); E88.810 Metabolic syndrome | CPT/HCPCS: 80048; 83036 ==

== ENCOUNTER → 2024-10-22 11:11 | Outpatient (BNVA) | payer MEDICARE, SELFPAY | PROVIDERS: PCP Nurse Practitioner Family; Visit Provider Nurse Practitioner Family | DX: R39.9 Unspecified symptoms and signs involving the genitourinary system (principal) | CPT/HCPCS: 81003 ==

== ENCOUNTER → 2024-11-06 08:35 | Outpatient (BNVA) | payer MEDICARE, SELFPAY | PROVIDERS: PCP Nurse Practitioner Family; Visit Provider Nurse Practitioner Family | DX: E78.2 Mixed hyperlipidemia (principal); E55.9 Vitamin D deficiency, unspecified; E11.9 Type 2 diabetes mellitus without complications; Z79.4 Long term (current) use of insulin; N39.0 Urinary tract infection, site not specified; R41.3 Other amnesia | CPT/HCPCS: 80053; 80061; 81003; 82306; 82607; 82728; 82746; 83036; 83550; 84443; 85025 ==

== ENCOUNTER → 2025-02-17 10:17 | Outpatient (BNVA) | payer MEDICARE, SELFPAY | PROVIDERS: PCP Nurse Practitioner Family; Visit Provider Nurse Practitioner Family | DX: N39.0 Urinary tract infection, site not specified (principal) | CPT/HCPCS: 81003; 87086 ==